=== PATIENT | male | born 1940 | race Caucasian/White ===

== ENCOUNTER 2022-09-11 10:19 | Observation (INO) ==
[2022-09-11] MEDS ORDERED: MAG HYDROX/AL HYDROX/SIMETH 30 ML ORAL.SUSP PO PRN (10:26)
[2022-09-11] MEDS ORDERED: ONDANSETRON 4 MG/2 ML VIAL IV PRN (10:26)
[2022-09-11] MEDS ORDERED: oxyCODONE/APAP 5/325MG TABLET PO PRN (10:26)
[2022-09-11] MEDS: DEXTROSE 5%-NS 1,000 ML IV SCH ×2 (11:42→21:10)
--- NOTE | 2022-09-11 11:59 | Urology History & Physical ---
HPI History of Present Illness Patient information: Note initiated : 09/11/22 at 11:56 am Service Date, if different from initiated Date: [] Patient: Bakari Lovell 82 y/o M admitted on 09/11/22 for Blood in urine. Chief Complaint: [Gross hematuria with clot retention] Chief complaint: Gross hematuria with clot retention History of present illness: Lamonte is an 82-year-old male with a history of urinary retention who was last seen in the office yesterday, September 10, 2022. Cystoscopy on March 07, 2022 revealed an extremely large, obstructing, median lobe of the prostate and intravesical protrusion circumferentially. The bladder neck to verumontanum distance was approximately 4 cm with severe coaptation of the lateral lobes. He underwent transurethral resection of the prostate on September 05, 2022. Pathology did not reveal any evidence of prostate cancer. Postoperatively we performed a voiding trial in the hospital which he failed. A 22 Malagasy catheter was replaced. Yesterday we performed a voiding trial. 300 mL of fluid were placed in the bladder via the catheter. The Johnson catheter was then removed. He was unable to urinate. A 22 Malagasy catheter was replaced. He presented today emergently with gross hematuria and clot retention. Review of Systems All systems: reviewed and no additional remarkable complaints except as stated Constitutional Constitutional: Present as per HPI Genitourinary Genitourinary: as per HPI, difficulty urinating and hematuria PFSH PFSH All Active Problems Clot retention of urine (Acute) Gross hematuria (Acute) Urinary retention (Chronic) Skin lesion of left lower extremity (Acute) Hypertension (Chronic) History of anticoagulant therapy (Chronic) Contact dermatitis (Chronic) Degeneration of cervical intervertebral disc (Chronic) Lung field abnormal (Chronic) Neck pain (Chronic) Mixed hyperlipidemia (Chronic) Subcutaneous mass of neck (Chronic) Viral hepatitis (Chronic) Macular dystrophy (Chronic) Bronchitis (Chronic) Johnson catheter in place (Chronic) BPH loc w urin obs/LUTS (Chronic) Asymptomatic bacteriuria (Chronic) E coli infection (Chronic) Prostatic enlargement (Chronic) Obesity (Chronic) Chronic obstructive lung disease (Chronic) Asthma (Chronic) Age-related macular degeneration (Chronic) Urinary tract infectious disease (Chronic) MCC (current) use of anticoagulants (Chronic) Atrial fibrillation (Chronic) Adenocarcinoma of prostate (Chronic) Chronic retention of urine (Chronic) Sensorineural hearing loss, bilateral (Chronic) Tinnitus (Chronic) Memory impairment (Chronic) Claw foot (Chronic) Metatarsalgia (Chronic) Allergic rhinitis (Chronic) Other atopic dermatitis and related conditions (Chronic) Foot pain (Chronic) Essential hypertension (Chronic) Confusion (Chronic) Medical History Acute UTI Adenocarcinoma of prostate Age-related macular degeneration Allergic rhinitis Ankle edema Asthma Asymptomatic bacteriuria Pus, frequent Atrial fibrillation Bronchitis Cellulitis Chronic obstructive lung disease Chronic retention of urine Claw foot Confusion Contact dermatitis Degeneration of cervical intervertebral disc E coli infection Resistant, 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 Essential hypertension Foot pain History of anticoagulant therapy Hypertension MCC (current) use of anticoagulants Lung field abnormal Lung mass Left lower lung mass, possible lobe collapse; CT PET not confirmatory Macular dystrophy Memory impairment Metatarsalgia Mixed hyperlipidemia Neck pain Obesity Other atopic dermatitis and related conditions Prostatic enlargement Sensorineural hearing loss, bilateral Subcutaneous mass of neck Tinnitus Urinary tract infectious disease Viral hepatitis Surgical History History of biopsy -Prostate/Needle or Punch -Lung Nodule History of mandibular surgery (~1956) Family History Father Cancer prostate Hypertension Brother Diabetes Hypertension Sister Diabetes Hypertension Grandmother Diabetes Paternal Hypertension Maternal Breast cancer Maternal Grandfather Colon cancer Paternal Cancer Prostate Social History marital status: service: Yes occupational status: employed occupation: Self smoking status: Former smoker alcohol intake frequency: does not drink substance use type: does not use MEDS/ALLERGIES Home Medications and Allergies Home Medications Medication Instructions Recorded Confirmed Type catheter #1 ea 06/23/17 09/10/22 History emollient (Aqua Lube topical 1 each topical TID 06/23/17 09/11/22 History lubricant) rivaroxaban 15 mg tablet (Xarelto) 15 mg PO QDAY 07/15/22 09/11/22 History chlorthalidone 25 mg tablet 25 mg PO QDAY 07/31/22 09/11/22 History metoprolol succinate 100 mg 100 mg PO QDAY 07/31/22 09/11/22 History tablet,extended release 24 hr albuterol 90 mcg/actuation aerosol 90 mcg inhalation Q6HP PRN 08/15/22 09/11/22 History inhaler Shortness Of Breath sulfamethoxazole 800 1 tab PO BID #14 tabs 09/07/22 09/11/22 Rx mg-trimethoprim 160 mg tablet (Bactrim DS) Allergies Allergy/AdvReac Type Severity Reaction Status Date / Time No Known Drug Allergies Allergy Verified 09/11/22 10:43 Physical Examination Vital Signs Vital signs: Temp Pulse Resp BP Pulse Ox O2 Del Method 97.3 F 111 H 22 124/72 100 Room Air 09/11/22 10:26 09/11/22 10:26 09/11/22 10:26 09/11/22 10:26 09/11/22 10:09/11/22 10:26 General physical appearance General physical exam: well developed, well nourished and no distress ENT ENT exam: decreased hearing Head Head exam IM: Present atraumatic, normal inspection and normocephalic Neck Neck exam: trachea midline Cardiovascular Cardiovascular exam IM: Present normal rate and rhythm Respiratory Respiratory exam: normal respiratory effort, clear to percussion and clear to auscultation Abdomen Abdomen: Present soft and non tender Genitourinary Genitourinary (Male): Present normal penis with no external lesions (Visual erosion of the distal 2 cm of the urethra) Neurologic Neurologic: Present normal coordination and normal sensation Psychiatric Psychiatric: Present oriented to time, oriented to person and oriented to place Results Labs 09/11/22 11:53 09/11/22 11:53 Labs: All other labs normal. A/P Assessment and plan (1) Clot retention of urine: Status: Acute (2) Gross hematuria: Status: Acute (3) Urinary retention: Status: Chronic Narrative A/P Narrative: Lamonte is an 82-year-old male with a history of urinary retention who was last seen in the office yesterday, September 10, 2022. Cystoscopy on March 07, 2022 revealed an extremely large, obstructing, median lobe of the prostate and intravesical protrusion circumferentially. The bladder neck to verumontanum distance was approximately 4 cm with severe coaptation of the lateral lobes. He underwent transurethral resection of the prostate on September 05, 2022. Pathology did not reveal any evidence of prostate cancer. Postoperatively we performed a voiding trial in the hospital which he failed. A 22 Malagasy catheter was replaced. He reports he has not restarted his Eliquis. Yesterday we performed a voiding trial. 300 mL of fluid were placed in the bladder via the catheter. The Johnson catheter was then removed. He was unable to urinate. A 22 Malagasy catheter was replaced. He presented today emergently with gross hematuria and clot retention. In the office today I exchanged the 22 Malagasy catheter for 24 Malagasy catheter with a 30 cc balloon. I performed hand irrigation with 2 L of sterile water and removed approxione 100 cc of clot. The urine remained clear red blood flowing freely. Due to the gross hematuria I decided to admit him to the hospital for observation and possible continuous bladder irrigation. If the urine does not clear I may take him to the operating room tomorrow for evacuation of clot and fulguration of bleeding Time Spent With Patient Time: Total time spent is greater than 50% in coordination of care (as documented) at patient's floor/unit and/or counseling patient:
[2022-09-11] MEDS ORDERED: LIDOCAINE 2% URO-JET 10 ML JEL.PF.APP UR ONE (12:15)
[2022-09-11 12:31] LABS: Hematocrit 32.2 % (40.1-51.0); Hemoglobin 10.6 g/dL (13.7-17.5); Mean Cell Volume 92.3 fL (80.0-100.0); Mean Corpuscular HGB Conc 32.9 g/dL (31.0-36.0); Mean Platelet Volume 9.1 fL (8.8-12.5); Platelet Count 212 K/mcL (140-440); RBC 3.49 M/mcL (4.63-6.08); Red Cell Distribution Width 14.5 % (11.5-14.5); WBC 13.5 K/mcL (4.5-11.0)
[2022-09-11 13:03] LABS: Blood Urea Nitrogen 20 mg/dL (8-23); Calcium 8.8 mg/dL (8.6-10.4); Carbon Dioxide 23 mmol/L (22-30); Chloride 97 mmol/L (96-108); Glomerular Filtration Rate 36; Glucose 152 mg/dL (70-105)
[2022-09-11] MEDS: 0.9 % SODIUM CHLORIDE 10 ML SYRINGE IV SCH ×2 (14:46→21:09)
[2022-09-12] MEDS: 0.9 % SODIUM CHLORIDE 10 ML SYRINGE IV SCH ×4 (05:45→20:15)
[2022-09-12] MEDS: DEXTROSE 5%-NS 1,000 ML IV SCH ×2 (06:32→18:58)
--- NOTE | 2022-09-12 08:49 | XRay Report ---
INDICATION: pre-op TECHNIQUE: AP portable semiupright chest x-ray COMPARISON: Previous chest x-rays dated 02/06/2022, 08/05/2017. Previous chest CT scan dated 03/29/2022 FINDINGS: Lungs:Mild bibasilar pulmonary parenchymal density. This is not well evaluated on this AP, semiupright chest x-ray. This patient has a history of left lower lobe consolidation demonstrated on prior chest CT scan. Upright PA and lateral chest x-ray or CT scan recommended for further evaluation. Mid and upper lungs are negative. Heart, vascular:No significant cardiomegaly. Pulmonary vascularity is normal. No pulmonary edema or pulmonary congestion Mediastinum, shabbir:No mediastinal widening. No hilar mass Pleura:No pleural fluid. No pleural-based mass or calcification Skeletal:Negative. IMPRESSION: 1. Mild bibasilar pulmonary parenchymal density. Recommend routine upright PA and lateral chest x-ray 2. No other abnormality Interpreted and Authenticated by: Eitan See 09/12/22
[2022-09-12] MEDS ORDERED: ceFAZolin 2 GM in DEXTROSE 5% IN WATER 50 ML IV SCH (09:15)
[2022-09-12] MEDS ORDERED: PROPOFOL 200 MG/20 ML VIAL IV ONE (09:28)
[2022-09-12] MEDS ORDERED: KETAMINE 50 MG/ML Syringe (ANEST) IV ONE (09:28)
[2022-09-12] MEDS ORDERED: DEXAMETHASONE 10 MG/ML VIAL ONE (09:28)
[2022-09-12] MEDS ORDERED: ESMOLOL 100 MG/10 ML VIAL IV ONE (09:28)
[2022-09-12] MEDS ORDERED: PHENYLephrine 1 MG/10 ML SYRINGE (ANEST) ONE (09:28)
[2022-09-12] MEDS ORDERED: MAGNESIUM SULFATE 2 GM/50 ML BAG IV ONE (09:28)
[2022-09-12] MEDS ORDERED: LIDOCAINE HCL/PF 100 MG/5 ML SYRINGE IV ONE (09:28)
[2022-09-12] MEDS ORDERED: ONDANSETRON 4 MG/2 ML VIAL ONE (09:28)
[2022-09-12] MEDS ORDERED: fentaNYL 100 MCG/2 ML VIAL IV ONE (09:28)
[2022-09-12] MEDS ORDERED: GLYCOPYRROLATE 0.2 MG/ML VIAL IV ONE (09:28)
[2022-09-12] MEDS ORDERED: ACETAMINOPHEN 1,000 MG/100 ML BAG IV ONE (09:32)
[2022-09-12] MEDS ORDERED: LACTATED RINGERS 250 ML IV PRN ×2 (09:32→11:37)
[2022-09-12] MEDS ORDERED: LABETALOL 5 MG/ML ML IV PRN ×2 (09:32→11:37)
[2022-09-12] MEDS ORDERED: NALOXONE HCL 0.4 MG/ML VIAL IV PRN ×2 (09:32→11:37)
[2022-09-12] MEDS ORDERED: MEPERIDINE 25 MG/ML VIAL IV PRN ×2 (09:32→11:37)
[2022-09-12] MEDS ORDERED: IPRATROPIUM/ALBUTEROL 3 ML AMPUL.NEB NEB PRN ×3 (09:32→12:00)
[2022-09-12] MEDS ORDERED: ONDANSETRON 4 MG/2 ML VIAL IV PRN ×3 (09:32→12:16)
[2022-09-12] MEDS ORDERED: METOPROLOL TARTRATE 5 MG/5 ML VIAL IV PRN ×2 (09:32→11:37)
[2022-09-12] MEDS ORDERED: METHOCARBAMOL 1,000 MG/10 ML VIAL IV PRN ×2 (09:32→11:37)
[2022-09-12] MEDS ORDERED: fentaNYL 100 MCG/2 ML VIAL IV PRN ×2 (09:32→11:37)
[2022-09-12] MEDS ORDERED: LACTATED RINGERS 1,000 ML IV SCH ×2 (09:45→11:45)
--- NOTE | 2022-09-12 10:05 | EKG ---
[facility] Test Date: 2022-09-12 Pat Name: Bakari Lovell Department: [facility] Room: 126 Gender: Male Second Worker: : 1940 Requested By: Jamison Guillaume Order Number: [id number] Reading MD: Payam Londono D.O. Measurements Intervals [place] Rate: 94 P: [place]: QRS: 35 QRSD: 93 T: 57 QT: 390 QTc: 488 Interpretive Statements Atrial fibrillation Probable LVH with secondary repol abnrm Anterior Q waves, possibly due to LVH Electronically Signed On 09-12-2022 10:05:09 PDT by Payam Londono D.O. /store/M0/[id number]
[2022-09-12] MEDS ORDERED: LIDOCAINE 2% URO-JET 10 ML JEL.PF.APP UR ONE (11:23)
[2022-09-12] MEDS ORDERED: SCOPOLAMINE 1 PATCH PATCH TOPICAL PRN (12:00)
[2022-09-12] MEDS ORDERED: BISACODYL 10 MG SUPP.RECT PR PRN (12:16)
[2022-09-12] MEDS ORDERED: MAGNESIUM HYDROXIDE 30 ML ORAL.SUSP PO PRN (12:16)
[2022-09-12] MEDS ORDERED: MAG HYDROX/AL HYDROX/SIMETH 30 ML ORAL.SUSP PO PRN (12:16)
[2022-09-12] MEDS ORDERED: HYDROcodone/APAP 5/325MG TABLET PO PRN (12:16)
--- NOTE | 2022-09-12 12:16 | Operative Note ---
Brief Operative Note Date of procedure: 09/12/22 Pre-op diagnosis: Gross hematuria and clot retention status post TURP Post-op diagnosis: same Procedure: Cystoscopy with evacuation of 700 cc of dense clot and fulguration of bleeding Grafts/Implants: Yes (24 Polish three-way catheter with irrigation port plugged and 30 cc in ball) Anesthesia: GLMA Findings: 700 cc of dense clot Complications: none Surgeon: Kai Martinez Estimated blood loss (cc): 10 Specimens Removed/Pathology: none sent Condition: stable Disposition: PACU Operative Note Operative Note: After obtaining informed consent from the patient, he was brought to the operating room was placed upon on the operating table. General anesthesia was provided. He was repositioned in a dorsolithotomy position was prepped and draped in usual sterile fashion. Attention was directed to urethral meatus where a 28 Polish continuous-flow resectoscope sheath was obturator was easily passed per urethra into the bladder. The obturator was removed and the bipolar resectoscope element was placed. Immediately seen was clot. Attempts were made to hand irrigate the clot from the bladder these were unsuccessful due to the density of the clot. To remove the clot I needed to perform transurethral resection of the clot to break it into smaller pieces which could then be irrigated out. This took approximately 1-1/2 hours. Once the clot was completely evacuated there was no significant bleeding seen. I used the button electrode to cauterize the prostatic fossa. At the end of the procedure there was no bleeding seen and no further clot within the bladder. The bladder was filled and the resectoscope was removed. Lidocaine jelly was placed near the urethra and the bladder. A 24 Polish three-way Johnson catheter was and easily passed per urethra into the bladder. The balloon was inflated with 30 mL of sterile water. Was placed to gravity drainage. It was hand irrigated and ran clear. The irrigation port was plugged. No irrigation was started. He was returned to the spine position. He was awake and returned to the recovery room in stable condition.
[2022-09-12] MEDS ORDERED: DEXTROSE 5%-NS 1,000 ML IV SCH (12:30)
--- NOTE | 2022-09-12 15:27 | Discharge Plan ---
Discharge Plan Patient/Caregiver Discharge Instructions Activity: increase activity as tolerated Diet: Regular Diet Activity Restrictions/Additional Instructions: Discharged home with Johnson catheter in place. The irrigation port is already plugged. Keep the main drainage port to gravity drainage. Provide a leg bag and night bag. Teach care and use. Prescriptions: New hydrocodone-acetaminophen 5-325 mg tablet 1 tab PO Q6H PRN (Reason: pain) Qty: 8 0RF sulfamethoxazole-trimethoprim [Bactrim DS] 800-160 mg tablet 1 tab PO BID Qty: 14 0RF Continued Aqua Lube lubricant 1 each TOPICAL TID albuterol 90 mcg/actuation aerosol 90 mcg inhalation Q6HP PRN (Reason: Shortness Of Breath) chlorthalidone 25 mg tablet 25 mg PO QDAY metoprolol succinate 100 mg tablet extended release 24 hr 100 mg PO QDAY Discontinued sulfamethoxazole-trimethoprim [Bactrim DS] 800-160 mg tablet 1 tab PO BID Qty: 14 0RF No Action Xarelto 15 mg tablet 15 mg PO QDAY Patient Comments: on hold for now Rx Instructions: must administer with evening meal Follow Up Plan Patient Disposition: Home, Self-Care Discharge Orders: Discharge Order (Routine); Ordered 09/12/22 Ordered By: Kai Martinez
--- NOTE | 2022-09-12 15:27 | Urology Progress Note ---
SUBJECTIVE Subjective Patient information: Note initiated : 09/12/22 at 3:24 pm Service Date, if different from initiated Date: [] Patient: Bakari Lovell 82 y/o M admitted on 09/11/22 for Blood in urine. Chief Complaint: [Gross hematuria with clot retention] Principal diagnosis: Gross hematuria with clot retention status post transurethral resection of Interval history: The patient is status post evacuation of a large amount of clot from the bladder. Hemostasis was obtained. The patient was readmitted to the floor. A three-way Johnson catheter was placed but there is no irrigation running in the urine is clear to clear light pink. There were no clots in the urine. Constitutional Vitals: Vital Signs Temp Pulse Resp BP Pulse Ox O2 Del Method O2 Flow Rate 97.1 F 126 H 12 138/68 97 Nasal Cannula 2 09/12/22 13:21 09/12/22 13:21 09/12/22 13:21 09/12/22 13:21 09/12/22 13:21 09/12/22 13:10 09/12/22 13:20 Period Temp Pulse Resp BP Sys/Jackson Pulse Ox O2 Del Method O2 Flow Rate Last 24 Hr 97.0 F-98.6 F 98-126 8-24 103-159/47-148 95-100 Nasal Cannula-Room Air 0-5 Intake and Output 09/12/22 09/12/22 09/12/22 03:59 11:59 19:59 Intake Total 72423 6987 1550 Output Total 62057 6600 250 Balance -3853 387 1300 Intake & Output: Intake & Output 09/12/22 09/12/22 09/12/22 03:59 11:59 19:59 Intake Total 86286 6987 1550 Output Total 07137 6600 250 Balance -3853 387 1300 Intake: IV 947 987 100 Dextrose 5%-Ns IV Solution 1, 947 937 000 ml @ 100 mls/hr IV .Q10H [facility] Rx#:[id number] Ancef 2 gm In Dextrose 5% in 50 Water 50 ml @ 100 mls/hr IV PREOP [facility] Rx#:[id number] IV - Manual Only 1450 CBI Fluid 59256 6000 Output: Urine Catheter Amount 150 Estimated Blood Loss 100 CBI Fluid 41621 6600 Other: Urine Appearance Hematuria Clear Small Blood Clots 3-way Urethral Clear Urine Color Medium Red Light [place] 3-way Urethral Light Red Light Red Urine Odor Normal Normal 3-way Urethral Normal Net CBI 400 250 General appearance: average body habitus, cooperative and no acute distress Head Head exam: Present atraumatic, normal inspection and normocephalic Respiratory Respiratory exam: Present normal respiratory exam and CTAB Cardiovascular Cardiovascular exam: Present normal rate and rhythm Expanded Exam Urine Appearance: Clear Urine Color: Light Red A/P Assessment and plan (1) Clot retention of urine: Status: Acute (2) Gross hematuria: Status: Acute (3) Urinary retention: Status: Chronic Narrative A/P Narrative: Lamonte is an 82-year-old male who is status postevacuation of clot and fulguration of bleeding today. I kept him for several hours after surgery and the urine remains a clear to clear light red color without irrigation. I feel that he may go home. We will leave the Johnson catheter in place. Will go home with a leg bag and night bag. He will follow-up with me in the office next week for another voiding trial. Time Spent With Patient Time: Total time spent is greater than 50% in coordination of care (as documented) at patient's floor/unit and/or counseling patient:
[2022-09-13 06:23] LABS: Basophils # (Auto) 0.01 K/mcL (0.00-0.30); Basophils % (Auto) 0.1 % (0.0-2.0); Eosinophils # (Auto) 0 K/mcL (0.00-0.70); Eosinophils % (Auto) 0 % (0.0-7.0); Hematocrit 22.9 % (40.1-51.0); Hemoglobin 7.5 g/dL (13.7-17.5); Lymphocytes # (Auto) 0.86 K/mcL (1.50-4.80); Lymphocytes % (Auto) 6.7 % (15.5-49.0); Mean Cell Volume 93.5 fL (80.0-100.0); Mean Corpuscular HGB Conc 32.8 g/dL (31.0-36.0); Mean Platelet Volume 9.3 fL (8.8-12.5); Monocytes # (Auto) 0.95 K/mcL (0.10-0.90); Monocytes % (Auto) 7.4 % (1.0-12.0); Neutrophils % (Auto) 84.7 % (38.0-78.0); Platelet Count 169 K/mcL (140-440); RBC 2.45 M/mcL (4.63-6.08); Red Cell Distribution Width 14.5 % (11.5-14.5); WBC 12.8 K/mcL (4.5-11.0)
--- NOTE | 2022-09-13 07:31 | Urology Progress Note ---
SUBJECTIVE Subjective Patient information: Note initiated : 09/13/22 at 7:28 am Service Date, if different from initiated Date: [] Patient: Bakari Lovell 82 y/o M admitted on 09/11/22 for Blood in urine. Chief Complaint: [] Principal diagnosis: Gross hematuria with clot retention status post transurethral resection of Interval history: Patient doing good this morning. No complaints. Denies any lightheadedness or dizziness, urine is clear Constitutional Vitals: Vital Signs Temp Pulse Resp BP Pulse Ox O2 Del Method O2 Flow Rate 98.1 F 88 16 117/68 99 Room Air 2 09/13/22 04:15 09/13/22 04:15 09/13/22 04:15 09/13/22 04:15 09/13/22 04:15 09/13/22 04:15 09/12/22 13:20 Period Temp Pulse Resp BP Sys/Jackson Pulse Ox O2 Del Method O2 Flow Rate Last 24 Hr 97.0 F-98.2 F 59-126 8-24 103-159/47-148 82-100 Nasal Cannula- Room Air 0-5 Intake and Output 09/12/22 09/13/22 09/13/22 19:59 03:59 11:59 Intake Total 3150 360 240 Output Total 350 1700 Balance 2800 360 -1460 Weight 83.143 kg Intake & Output: Intake & Output 09/12/22 09/13/22 09/13/22 19:59 03:59 11:59 Intake Total 3150 360 240 Output Total 350 1700 Balance 2800 360 -1460 Weight 83.143 kg Intake: IV 1100 Dextrose 5%-Ns IV Solution 1, 1000 000 ml @ 100 mls/hr IV .Q10H [facility] Rx#:[id number] Oral 600 360 240 IV - Manual Only 1450 Output: Urine Catheter Amount 250 1700 Estimated Blood Loss 100 Other: Meal Lunch Percent of Meal Consumed 100% Feeding Ability Independent Urine Appearance Cloudy Cloudy 3-way Urethral Cloudy Urine Color Dark Mary Jane Dark Mary Jane 3-way Urethral Dark Mary Jane Urine Odor Normal General appearance: cooperative and no acute distress GI/Abdominal GI/Abdominal exam: Present soft; Absent distended or tenderness Additional comments: Urine is clear via Johnson catheter Additional findings Additional findings: Labs noted A/P Assessment and plan (1) Johnson catheter in place: Status: Chronic (2) Gross hematuria: Assessment and plan: Resolved Status: Acute (3) Urinary retention: Status: Chronic (4) Clot retention of urine: Status: Acute Plan Postop day 1 status post cystoscopy, evacuation of bladder clot and fulguration. Patient doing well this morning without complaints. Patient's hemoglobin has dropped a little, he is asymptomatic.. We will plan to discharge him, with follow-up with Dr. Martinez next week, CBC next week before follow-up. Time Spent With Patient Time: Total time spent is greater than 50% in coordination of care (as documented) at patient's floor/unit and/or counseling patient:
== END 2022-09-13 11:30 | disposition home or self-care (01) ==
LOC: MEDSUR
PROVIDERS: ADMIT Urology; ATTEND Urology

== ENCOUNTER 2023-04-22 10:46 | Observation (INO) ==
[2023-04-22] MEDS ORDERED: IOPAMIDOL 100 ML BOTTLE IV ONE (10:47)
[2023-04-22 11:18] LABS: POC Calcium, Ionized 1.18 (1.16-1.32); POC Creatinine 1.4 (0.6-1.2); POC Potassium 4.5 (3.3-5.1)
[2023-04-22 11:36] LABS: POC INR 1.7 (0.8-1.2); POC Pro Time 19.4 (11.9-14.5)
[2023-04-22 12:12] LABS: Basophils # (Auto) 0.04 K/mcL (0.00-0.30); Basophils % (Auto) 0.5 % (0.0-2.0); Eosinophils % (Auto) 1.1 % (0.0-7.0); Hematocrit 44.9 % (40.1-51.0); Hemoglobin 14.1 g/dL (13.7-17.5); Lymphocytes # (Auto) 1.38 K/mcL (1.50-4.80); Lymphocytes % (Auto) 15.8 % (15.5-49.0); Mean Cell Volume 85.7 fL (80.0-100.0); Mean Corpuscular HGB Conc 31.4 g/dL (31.0-36.0); Mean Platelet Volume 9.1 fL (8.8-12.5); Monocytes # (Auto) 0.78 K/mcL (0.10-0.90); Neutrophils % (Auto) 73.3 % (38.0-78.0); Platelet Count 163 K/mcL (140-440); RBC 5.24 M/mcL (4.63-6.08); Red Cell Distribution Width 15.9 % (11.5-14.5); WBC 8.7 K/mcL (4.5-11.0)
[2023-04-22 12:31] LABS: Albumin 4.1 gm/dL (3.2-5.2); Bilirubin,Direct 0.2 mg/dL (<0.3); Globulin 3.2 gm/dL (2.2-3.7)
[2023-04-22 14:17] LABS: Free T4 (Free Thyroxine) 1.25 ng/dL (0.93-1.70); Thyroid Stimulating Hormone 1.02 uIU/mL (0.27-5.01)
[2023-04-22 14:34] LABS: Appearance,Urine CLEAR (Clear); Bilirubin,Urine Negative (Negative); Color,Urine YELLOW; Culture Indicated,Urine Yes; Glucose,Urine (UA) Negative (Negative); Ketones,Urine 5 mg/dL (Negative); Leukocyte Esterase,Urine 25 /uL (Negative); Mucus,Urine FEW /hpf; Nitrate,Urine Negative (Negative); Protein,Urine 30 mg/dL (Negative); Specific Gravity,Urine 1.048 (1.000-1.035); Urine Blood >=1.0 mg/dL (Negative); Urine RBC > 182 /hpf (0-1); Urine Squamous Epithelial Cell < 1 /hpf (0-4); Urine WBC 17 /hpf (0-4); Urobilinogen,Urine Negative
[2023-04-22] MEDS ORDERED: cefTRIAXone 1 GM VIAL IV ONE (14:42)
[2023-04-22] MEDS ORDERED: ONDANSETRON 4 MG/2 ML VIAL IV PRN (19:28)
[2023-04-22] MEDS ORDERED: 0.9 % SODIUM CHLORIDE 500 ML IV ONE (19:28)
[2023-04-22] MEDS ORDERED: FOSFOMYCIN TROMETHAMINE 3 GM PACKET PO ONE (19:28)
[2023-04-22] MEDS ORDERED: IPRATROPIUM/ALBUTEROL 3 ML AMPUL.NEB NEB SCH (19:28)
[2023-04-22] MEDS ORDERED: ALBUTEROL SULFATE 2.5 MG/3 ML NEBULIZER NEB PRN (19:28)
[2023-04-22] MEDS ORDERED: ACETAMINOPHEN 325 MG TABLET PO PRN (19:28)
[2023-04-22] MEDS: DOCUSATE SODIUM 100 MG CAPSULE PO SCH (21:00)
[2023-04-22] MEDS ORDERED: SENNOSIDES 1 TABLET PO SCH (21:00)
[2023-04-22] MEDS: 0.9 % SODIUM CHLORIDE 10 ML SYRINGE IV SCH (21:00)
[2023-04-23] MEDS: 0.9 % SODIUM CHLORIDE 10 ML SYRINGE IV SCH ×2 (06:10→13:29)
[2023-04-23] MEDS: DOCUSATE SODIUM 100 MG CAPSULE PO SCH (08:10)
[2023-04-23] MEDS ORDERED: RIVAROXABAN 15 MG TABLET PO SCH ×2 (09:00→17:30)
[2023-04-23] MEDS ORDERED: LOSARTAN 25 MG TABLET PO SCH (09:00)
[2023-04-23] MEDS ORDERED: TIOTROPIUM BROMIDE 18 MCG INHALANT INH SCH (09:00)
[2023-04-23] MEDS ORDERED: ATORVASTATIN 20 MG TABLET PO SCH (09:00)
[2023-04-23] MEDS ORDERED: METOPROLOL SUCCINATE 50 MG TAB.XL.24H PO SCH (09:00)
[2023-04-23] MEDS ORDERED: FUROSEMIDE 20 MG TABLET PO SCH (09:00)
== END 2023-04-23 14:08 | disposition home or self-care (01) ==
LOC: MEDSUR 10:46 → ED 10:46 → MEDSUR 19:20
PROVIDERS: ADMIT Internal Medicine; ATTEND Internal Medicine

== ENCOUNTER 2024-03-31 11:19 | Inpatient (IN) ==
[2024-03-31 12:08] LABS: Basophils # (Auto) 0.05 K/mcL (0.00-0.30); Basophils % (Auto) 0.7 % (0.0-2.0); Eosinophils # (Auto) 0.49 K/mcL (0.00-0.70); Eosinophils % (Auto) 6.6 % (0.0-7.0); Hematocrit 41.2 % (40.1-51.0); Hemoglobin 12.4 g/dL (13.7-17.5); Lymphocytes # (Auto) 1.07 K/mcL (1.50-4.80); Lymphocytes % (Auto) 14.5 % (15.5-49.0); Mean Cell Volume 85.1 fL (80.0-100.0); Mean Corpuscular HGB Conc 30.1 g/dL (31.0-36.0); Mean Platelet Volume 9.1 fL (8.8-12.5); Monocytes # (Auto) 1.06 K/mcL (0.10-0.90); Monocytes % (Auto) 14.3 % (1.0-12.0); Neutrophils % (Auto) 63.6 % (38.0-78.0); Platelet Count 202 K/mcL (140-440); RBC 4.84 M/mcL (4.63-6.08); Red Cell Distribution Width 16.2 % (11.5-14.5); WBC 7.4 K/mcL (4.5-11.0)
[2024-03-31 12:16] LABS: INR 1.2 (0.9-1.1); Prothrombin Time 15.2 sec (11.9-14.5)
[2024-03-31 12:19] LABS: Blood Urea Nitrogen 17 mg/dL (8-23); Calcium 8.6 mg/dL (8.6-10.4); Carbon Dioxide 24 mmol/L (22-30); Chloride 105 mmol/L (96-108); Glomerular Filtration Rate 49; Glucose 104 mg/dL (70-105); Potassium 3.6 mmol/L (3.3-5.1); Sodium 144 mmol/L (133-145)
[2024-03-31] MEDS ORDERED: fentaNYL 100 MCG/2 ML VIAL IV PRN (14:02)
[2024-03-31] MEDS ORDERED: ONDANSETRON 4 MG/2 ML VIAL IV PRN (14:02)
[2024-03-31] MEDS: POLYETHYLENE GLYCOL 3350 17 GM PACKET PO SCH (15:04)
[2024-03-31] MEDS: DEXTROSE 5%-1/2NS 1,000 ML IV SCH (15:24)
[2024-04-01] MEDS: PEG 3350/NA SULF,BICARB,CL/KCL 4,000 ML ORAL.SOL PO ONE (16:19)
[2024-04-02] MEDS ORDERED: SCOPOLAMINE 1 PATCH PATCH TOPICAL PRN (08:30)
[2024-04-02] MEDS ORDERED: IPRATROPIUM/ALBUTEROL 3 ML AMPUL.NEB NEB PRN (08:30)
[2024-04-02] MEDS ORDERED: PROPOFOL 200 MG/20 ML VIAL IV ONE (09:37)
[2024-04-02] MEDS: LOSARTAN 25 MG TABLET PO SCH (12:34)
[2024-04-02] MEDS: METOPROLOL SUCCINATE 50 MG TAB.XL.24H PO SCH (12:34)
[2024-04-03 06:25] LABS: Basophils # (Auto) 0.03 K/mcL (0.00-0.30); Basophils % (Auto) 0.4 % (0.0-2.0); Eosinophils # (Auto) 0.25 K/mcL (0.00-0.70); Eosinophils % (Auto) 3.6 % (0.0-7.0); Hematocrit 33.8 % (40.1-51.0); Hemoglobin 10.4 g/dL (13.7-17.5); Lymphocytes # (Auto) 0.93 K/mcL (1.50-4.80); Lymphocytes % (Auto) 13.4 % (15.5-49.0); Mean Cell Volume 85.4 fL (80.0-100.0); Mean Corpuscular HGB Conc 30.8 g/dL (31.0-36.0); Mean Platelet Volume 8.8 fL (8.8-12.5); Monocytes # (Auto) 1.06 K/mcL (0.10-0.90); Monocytes % (Auto) 15.2 % (1.0-12.0); Neutrophils % (Auto) 67.1 % (38.0-78.0); Platelet Count 159 K/mcL (140-440); RBC 3.96 M/mcL (4.63-6.08); Red Cell Distribution Width 16.1 % (11.5-14.5)
== END 2024-04-04 13:30 | disposition home or self-care (01) | DRG 394 ==
LOC: ED 11:19 → MEDSUR 14:33
PROVIDERS: ADMIT Family Medicine Adult Medicine; ATTEND Family Medicine Adult Medicine

== ENCOUNTER 2024-04-11 13:59 | Inpatient (IN) ==
[2024-04-11] MEDS ORDERED: IOPAMIDOL 100 ML BOTTLE IV ONE (14:00)
[2024-04-11] MEDS: 0.9 % SODIUM CHLORIDE 250 ML IV SCH ×3 (14:30→18:54)
[2024-04-11] MEDS: 0.9 % SODIUM CHLORIDE 1,000 ML IV ONE (14:31)
[2024-04-11 14:57] LABS: Basophils # (Auto) 0.03 K/mcL (0.00-0.30); Basophils % (Auto) 0.2 % (0.0-2.0); Eosinophils # (Auto) 0.21 K/mcL (0.00-0.70); Eosinophils % (Auto) 1.7 % (0.0-7.0); Hematocrit 29.4 % (40.1-51.0); Hemoglobin 8.6 g/dL (13.7-17.5); Lymphocytes # (Auto) 2.32 K/mcL (1.50-4.80); Lymphocytes % (Auto) 19.2 % (15.5-49.0); Mean Cell Volume 89.6 fL (80.0-100.0); Mean Corpuscular HGB Conc 29.3 g/dL (31.0-36.0); Mean Platelet Volume 9.9 fL (8.8-12.5); Monocytes # (Auto) 1.31 K/mcL (0.10-0.90); Monocytes % (Auto) 10.8 % (1.0-12.0); Neutrophils % (Auto) 67.6 % (38.0-78.0); Platelet Count 211 K/mcL (140-440); RBC 3.28 M/mcL (4.63-6.08); Red Cell Distribution Width 16.4 % (11.5-14.5); WBC 12.1 K/mcL (4.5-11.0)
[2024-04-11 15:08] LABS: Prothrombin Time 23.3 sec (11.9-14.5)
[2024-04-11 15:16] LABS: ALT/SGPT 7 U/L (<40); AST/SGOT 14 U/L (<40); Albumin 3.4 gm/dL (3.2-5.2); Albumin/Globulin Ratio 1.3 (1.0-2.3); Alkaline Phosphatase 52 U/L (39-117); Bilirubin,Total 0.6 mg/dL (0.1-1.0); Blood Urea Nitrogen 26 mg/dL (8-23); Calcium 8.2 mg/dL (8.6-10.4); Carbon Dioxide 19 mmol/L (22-30); Chloride 105 mmol/L (96-108); Globulin 2.6 gm/dL (2.2-3.7); Glomerular Filtration Rate 42; Glucose 171 mg/dL (70-105); Potassium 3.8 mmol/L (3.3-5.1); Sodium 142 mmol/L (133-145)
[2024-04-11 22:47] LABS: Appearance,Urine Clear (Clear); Bacteria,Urine Few /hpf (0); Bilirubin,Urine Negative (Negative); Color,Urine Yellow; Glucose,Urine (UA) Negative (Negative); Ketones,Urine Negative (Negative); Leukocyte Esterase,Urine Trace /uL (Negative); Nitrate,Urine Positive (Negative); Protein,Urine 30 mg/dL (Negative); Specific Gravity,Urine 1.015 (1.000-1.035); Urine Blood Trace-lysed ery/mcL (Negative); Urine RBC 4 /hpf (0-3); Urine Squamous Epithelial Cell 0 /hpf (0-4); Urine WBC 34 /hpf (0-4)
[2024-04-12 07:01] LABS: Basophils # (Auto) 0.04 K/mcL (0.00-0.30); Basophils % (Auto) 0.6 % (0.0-2.0); Eosinophils # (Auto) 0.28 K/mcL (0.00-0.70); Eosinophils % (Auto) 4.1 % (0.0-7.0); Hemoglobin 12.4 g/dL (13.7-17.5); Lymphocytes # (Auto) 1.12 K/mcL (1.50-4.80); Lymphocytes % (Auto) 16.3 % (15.5-49.0); Mean Cell Volume 85.2 fL (80.0-100.0); Mean Corpuscular HGB Conc 32.6 g/dL (31.0-36.0); Mean Platelet Volume 9.3 fL (8.8-12.5); Monocytes # (Auto) 0.95 K/mcL (0.10-0.90); Monocytes % (Auto) 13.8 % (1.0-12.0); Neutrophils % (Auto) 64.8 % (38.0-78.0); Platelet Count 127 K/mcL (140-440); RBC 4.46 M/mcL (4.63-6.08); Red Cell Distribution Width 14.9 % (11.5-14.5); WBC 6.9 K/mcL (4.5-11.0)
[2024-04-13 06:53] LABS: Basophils # (Auto) 0.04 K/mcL (0.00-0.30); Basophils % (Auto) 0.6 % (0.0-2.0); Eosinophils # (Auto) 0.29 K/mcL (0.00-0.70); Eosinophils % (Auto) 4.1 % (0.0-7.0); Hemoglobin 11.9 g/dL (13.7-17.5); Lymphocytes # (Auto) 1.13 K/mcL (1.50-4.80); Lymphocytes % (Auto) 15.9 % (15.5-49.0); Mean Cell Volume 86.2 fL (80.0-100.0); Mean Corpuscular HGB Conc 32.2 g/dL (31.0-36.0); Mean Platelet Volume 9.2 fL (8.8-12.5); Monocytes # (Auto) 1.06 K/mcL (0.10-0.90); Monocytes % (Auto) 14.9 % (1.0-12.0); Neutrophils % (Auto) 64.1 % (38.0-78.0); Platelet Count 136 K/mcL (140-440); RBC 4.29 M/mcL (4.63-6.08); Red Cell Distribution Width 15.5 % (11.5-14.5); WBC 7.1 K/mcL (4.5-11.0)
== END 2024-04-13 16:25 | disposition home or self-care (01) | DRG 378 ==
LOC: ED 13:59 → MEDSUR 19:17
PROVIDERS: ADMIT Family Medicine Adult Medicine; ATTEND Family Medicine Adult Medicine

== ENCOUNTER 2024-05-27 16:41 | Inpatient (IN) ==
[2024-05-27 17:35] LABS: Basophils # (Auto) 0.01 K/mcL (0.00-0.30); Basophils % (Auto) 0 % (0.0-2.0); Eosinophils # (Auto) 0 K/mcL (0.00-0.70); Eosinophils % (Auto) 0 % (0.0-7.0); Hematocrit 49.3 % (40.1-51.0); Hemoglobin 15.5 g/dL (13.7-17.5); Lymphocytes # (Auto) 0.86 K/mcL (1.50-4.80); Mean Cell Volume 87.3 fL (80.0-100.0); Mean Corpuscular HGB Conc 31.4 g/dL (31.0-36.0); Mean Platelet Volume 9.6 fL (8.8-12.5); Monocytes # (Auto) 1.65 K/mcL (0.10-0.90); Monocytes % (Auto) 7.6 % (1.0-12.0); Neutrophils % (Auto) 87.8 % (38.0-78.0); Platelet Count 237 K/mcL (140-440); RBC 5.65 M/mcL (4.63-6.08); Red Cell Distribution Width 15.9 % (11.5-14.5); WBC 21.6 K/mcL (4.5-11.0)
[2024-05-27] MEDS: ONDANSETRON 4 MG/2 ML VIAL IV ONE (17:40)
[2024-05-27] MEDS: 0.9 % SODIUM CHLORIDE 1,000 ML IV ONE (17:40)
[2024-05-27 17:53] LABS: ALT/SGPT 8 U/L (<40); AST/SGOT 18 U/L (<40); Albumin 4.1 gm/dL (3.2-5.2); Albumin/Globulin Ratio 1.1 (1.0-2.3); Alkaline Phosphatase 69 U/L (39-117); Bilirubin,Total 1.3 mg/dL (0.1-1.0); Blood Urea Nitrogen 35 mg/dL (8-23); Calcium 9.6 mg/dL (8.6-10.4); Carbon Dioxide 14 mmol/L (22-30); Chloride 101 mmol/L (96-108); Globulin 3.7 gm/dL (2.2-3.7); Glomerular Filtration Rate 25; Glucose 206 mg/dL (70-105); Potassium 4.1 mmol/L (3.3-5.1); Sodium 139 mmol/L (133-145)
[2024-05-27] MEDS ORDERED: VANCOMYCIN 1,000 MG in 0.9 % SODIUM CHLORIDE 250 ML IV ONE (17:54)
[2024-05-27] MEDS: METOPROLOL TARTRATE 5 MG/5 ML VIAL IV SCH (17:55)
[2024-05-27] MEDS: CEFEPIME 2 GM VIAL IV SCH (18:28)
[2024-05-27] MEDS: VANCOMYCIN 1,250 MG in 0.9 % SODIUM CHLORIDE 500 ML IV ONE (18:54)
[2024-05-27] MEDS: SODIUM CHLORIDE IV ONE (18:55)
[2024-05-27 19:15] LABS: Appearance,Urine Turbid (Clear); Bacteria,Urine Many /hpf (0); Bilirubin,Urine Negative (Negative); Color,Urine Yellow; Glucose,Urine (UA) Negative (Negative); Ketones,Urine Negative (Negative); Leukocyte Esterase,Urine Large /uL (Negative); Nitrate,Urine Positive (Negative); PH,Urine >= 9.0 (5.0-9.0); Protein,Urine >=300 mg/dL (Negative); Specific Gravity,Urine 1.015 (1.000-1.035); Triple Phosphate Crystal,Urine Many /hpf; Urine Blood Large ery/mcL (Negative); Urine RBC > 182 /hpf (0-1); Urine Squamous Epithelial Cell 0 /hpf (0-4); Urine WBC > 182 /hpf (0-4); Urobilinogen,Urine Normal
[2024-05-27] MEDS: VANCOMYCIN PER PHARMACY IV ONE (19:21)
[2024-05-27] MEDS ORDERED: SENNOSIDES 1 TABLET PO PRN (21:38)
[2024-05-27] MEDS ORDERED: ACETAMINOPHEN 325 MG TABLET PO PRN (21:38)
[2024-05-27] MEDS ORDERED: LACTULOSE 20 GM/30 ML ORAL.SOL PO PRN (21:38)
[2024-05-27] MEDS ORDERED: ONDANSETRON 4 MG/2 ML VIAL IV PRN (21:38)
[2024-05-27] MEDS ORDERED: VANCOMYCIN PER PHARMACY IV SCH (21:38)
[2024-05-27] MEDS ORDERED: ALBUTEROL SULFATE 2.5 MG/3 ML NEBULIZER NEB PRN (21:38)
[2024-05-27] MEDS: 0.9 % SODIUM CHLORIDE 1,000 ML IV SCH (22:40)
[2024-05-27] MEDS: 0.9 % SODIUM CHLORIDE 10 ML SYRINGE IV SCH (22:42)
[2024-05-27] MEDS: IPRATROPIUM/ALBUTEROL 3 ML AMPUL.NEB NEB SCH (23:59)
[2024-05-28 06:06] LABS: Basophils # (Auto) 0.02 K/mcL (0.00-0.30); Basophils % (Auto) 0.1 % (0.0-2.0); Eosinophils # (Auto) 0.01 K/mcL (0.00-0.70); Eosinophils % (Auto) 0.1 % (0.0-7.0); Hematocrit 37.9 % (40.1-51.0); Hemoglobin 12.1 g/dL (13.7-17.5); Lymphocytes # (Auto) 0.97 K/mcL (1.50-4.80); Lymphocytes % (Auto) 5.8 % (15.5-49.0); Mean Cell Volume 87.3 fL (80.0-100.0); Mean Corpuscular HGB Conc 31.9 g/dL (31.0-36.0); Mean Platelet Volume 9.7 fL (8.8-12.5); Monocytes # (Auto) 1.62 K/mcL (0.10-0.90); Monocytes % (Auto) 9.7 % (1.0-12.0); Platelet Count 168 K/mcL (140-440); RBC 4.34 M/mcL (4.63-6.08); WBC 16.7 K/mcL (4.5-11.0)
[2024-05-28 06:37] LABS: ALT/SGPT 6 U/L (<40); AST/SGOT 14 U/L (<40); Albumin 3.1 gm/dL (3.2-5.2); Albumin/Globulin Ratio 1.2 (1.0-2.3); Alkaline Phosphatase 50 U/L (39-117); Bilirubin,Direct 0.5 mg/dL (<0.3); Bilirubin,Total 0.9 mg/dL (0.1-1.0); Blood Urea Nitrogen 27 mg/dL (8-23); Calcium 8.4 mg/dL (8.6-10.4); Carbon Dioxide 19 mmol/L (22-30); Chloride 108 mmol/L (96-108); Globulin 2.6 gm/dL (2.2-3.7); Glomerular Filtration Rate 45; Glucose 103 mg/dL (70-105); Lactate Dehydrogenase 134 U/L (135-225); Phosphorous 1.9 mg/dL (2.5-4.5); Potassium 3.9 mmol/L (3.3-5.1); Sodium 138 mmol/L (133-145); Triglycerides 59 mg/dL (<150); Uric Acid 5.8 mg/dL (2.5-8.0)
[2024-05-28 08:50] LABS: Estimated Average Glucose(eAG) 114 mg/dL; Hemoglobin A1C 5.6 % Hgb (4.0-6.0)
[2024-05-28] MEDS: CEFEPIME 1 GM VIAL IV SCH ×2 (08:50→20:33)
[2024-05-28] MEDS: DOCUSATE SODIUM 100 MG CAPSULE PO SCH (08:51)
[2024-05-28] MEDS: METOPROLOL SUCCINATE 50 MG TAB.XL.24H PO SCH ×2 (08:51→09:55)
[2024-05-28] MEDS: HEPARIN 5,000 UNIT/ML VIAL SQ SCH (08:51)
[2024-05-28] MEDS: CEFEPIME 1 GM VIAL IV ONE (10:04)
[2024-05-28] MEDS: TIOTROPIUM BROMIDE 18 MCG INHALANT INH SCH (10:23)
[2024-05-28] MEDS: ATORVASTATIN 20 MG TABLET PO SCH (10:25)
[2024-05-28] MEDS: VANCOMYCIN 1,250 MG in 0.9 % SODIUM CHLORIDE 500 ML IV SCH (14:12)
[2024-05-28] MEDS ORDERED: IPRATROPIUM/ALBUTEROL 3 ML AMPUL.NEB NEB PRN (18:03)
[2024-05-29 07:15] LABS: Basophils # (Auto) 0.04 K/mcL (0.00-0.30); Basophils % (Auto) 0.5 % (0.0-2.0); Eosinophils # (Auto) 0.14 K/mcL (0.00-0.70); Eosinophils % (Auto) 1.9 % (0.0-7.0); Hematocrit 36.4 % (40.1-51.0); Hemoglobin 11.6 g/dL (13.7-17.5); Lymphocytes # (Auto) 0.85 K/mcL (1.50-4.80); Lymphocytes % (Auto) 11.6 % (15.5-49.0); Mean Cell Volume 87.9 fL (80.0-100.0); Mean Corpuscular HGB Conc 31.9 g/dL (31.0-36.0); Monocytes # (Auto) 0.79 K/mcL (0.10-0.90); Monocytes % (Auto) 10.7 % (1.0-12.0); Neutrophils % (Auto) 74.9 % (38.0-78.0); Platelet Count 149 K/mcL (140-440); RBC 4.14 M/mcL (4.63-6.08); Red Cell Distribution Width 16.5 % (11.5-14.5); WBC 7.4 K/mcL (4.5-11.0)
[2024-05-29 07:36] LABS: ALT/SGPT 6 U/L (<40); AST/SGOT 17 U/L (<40); Albumin 3.2 gm/dL (3.2-5.2); Albumin/Globulin Ratio 1.3 (1.0-2.3); Alkaline Phosphatase 47 U/L (39-117); Bilirubin,Direct 0.3 mg/dL (<0.3); Bilirubin,Total 0.5 mg/dL (0.1-1.0); Blood Urea Nitrogen 22 mg/dL (8-23); Calcium 8.6 mg/dL (8.6-10.4); Carbon Dioxide 21 mmol/L (22-30); Chloride 110 mmol/L (96-108); Globulin 2.5 gm/dL (2.2-3.7); Glomerular Filtration Rate 54; Glucose 102 mg/dL (70-105); Lactate Dehydrogenase 124 U/L (135-225); Phosphorous 2.2 mg/dL (2.5-4.5); Potassium 4.2 mmol/L (3.3-5.1); Sodium 140 mmol/L (133-145); Triglycerides 64 mg/dL (<150); Uric Acid 5.3 mg/dL (2.5-8.0)
[2024-05-29] MEDS: METOPROLOL SUCCINATE 50 MG TAB.XL.24H PO SCH (09:35)
[2024-05-29] MEDS: VANCOMYCIN 1,500 MG in 0.9 % SODIUM CHLORIDE 500 ML IV SCH (15:08)
[2024-05-29] MEDS: 0.9 % SODIUM CHLORIDE 500 ML IV ONE (20:25)
[2024-05-29] MEDS: POLYETHYLENE GLYCOL 3350 17 GM PACKET PO SCH (20:25)
[2024-05-30 05:58] LABS: Basophils # (Auto) 0.04 K/mcL (0.00-0.30); Basophils % (Auto) 0.7 % (0.0-2.0); Eosinophils # (Auto) 0.15 K/mcL (0.00-0.70); Eosinophils % (Auto) 2.6 % (0.0-7.0); Hematocrit 37.7 % (40.1-51.0); Hemoglobin 11.7 g/dL (13.7-17.5); Lymphocytes # (Auto) 0.91 K/mcL (1.50-4.80); Lymphocytes % (Auto) 15.6 % (15.5-49.0); Mean Cell Volume 89.8 fL (80.0-100.0); Mean Platelet Volume 9.2 fL (8.8-12.5); Monocytes # (Auto) 0.69 K/mcL (0.10-0.90); Monocytes % (Auto) 11.8 % (1.0-12.0); Neutrophils % (Auto) 68.6 % (38.0-78.0); Platelet Count 138 K/mcL (140-440); Red Cell Distribution Width 16.3 % (11.5-14.5); WBC 5.8 K/mcL (4.5-11.0)
[2024-05-30 06:48] LABS: ALT/SGPT 10 U/L (<40); AST/SGOT 19 U/L (<40); Albumin 3.1 gm/dL (3.2-5.2); Albumin/Globulin Ratio 1.3 (1.0-2.3); Alkaline Phosphatase 44 U/L (39-117); Bilirubin,Direct 0.3 mg/dL (<0.3); Bilirubin,Total 0.4 mg/dL (0.1-1.0); Blood Urea Nitrogen 22 mg/dL (8-23); Calcium 8.1 mg/dL (8.6-10.4); Carbon Dioxide 21 mmol/L (22-30); Chloride 110 mmol/L (96-108); Globulin 2.4 gm/dL (2.2-3.7); Glomerular Filtration Rate 54; Glucose 103 mg/dL (70-105); Lactate Dehydrogenase 123 U/L (135-225); Phosphorous 2.1 mg/dL (2.5-4.5); Potassium 4.3 mmol/L (3.3-5.1); Sodium 138 mmol/L (133-145); Triglycerides 68 mg/dL (<150); Uric Acid 4.7 mg/dL (2.5-8.0)
[2024-05-31 06:44] LABS: Basophils # (Auto) 0.04 K/mcL (0.00-0.30); Basophils % (Auto) 0.7 % (0.0-2.0); Eosinophils # (Auto) 0.26 K/mcL (0.00-0.70); Eosinophils % (Auto) 4.7 % (0.0-7.0); Hematocrit 38.7 % (40.1-51.0); Hemoglobin 12.2 g/dL (13.7-17.5); Lymphocytes # (Auto) 0.82 K/mcL (1.50-4.80); Lymphocytes % (Auto) 14.8 % (15.5-49.0); Mean Corpuscular HGB Conc 31.5 g/dL (31.0-36.0); Mean Platelet Volume 9.4 fL (8.8-12.5); Monocytes # (Auto) 0.57 K/mcL (0.10-0.90); Monocytes % (Auto) 10.3 % (1.0-12.0); Neutrophils % (Auto) 68.6 % (38.0-78.0); Platelet Count 167 K/mcL (140-440); RBC 4.35 M/mcL (4.63-6.08); Red Cell Distribution Width 15.6 % (11.5-14.5); WBC 5.5 K/mcL (4.5-11.0)
[2024-05-31 07:11] LABS: ALT/SGPT 14 U/L (<40); AST/SGOT 23 U/L (<40); Albumin 3.2 gm/dL (3.2-5.2); Albumin/Globulin Ratio 1.2 (1.0-2.3); Alkaline Phosphatase 55 U/L (39-117); Bilirubin,Direct < 0.2 mg/dL (0-0.3); Bilirubin,Total 0.3 mg/dL (0.1-1.0); Blood Urea Nitrogen 20 mg/dL (8-23); Calcium 8.6 mg/dL (8.6-10.4); Carbon Dioxide 20 mmol/L (22-30); Chloride 107 mmol/L (96-108); Globulin 2.6 gm/dL (2.2-3.7); Glomerular Filtration Rate 60; Glucose 110 mg/dL (70-105); Lactate Dehydrogenase 139 U/L (135-225); Phosphorous 2.1 mg/dL (2.5-4.5); Potassium 4.3 mmol/L (3.3-5.1); Sodium 137 mmol/L (133-145); Triglycerides 183 mg/dL (<150); Uric Acid 4.1 mg/dL (2.5-8.0)
[2024-05-31] MEDS: PIPERACILLIN SODIUM/TAZOBACTAM 3.375 GM in DEXTROSE 5% IN WATER 50 ML IV ONE (09:55)
[2024-05-31] MEDS: PIPERACILLIN SODIUM/TAZOBACTAM 3.375 GM in DEXTROSE 5% IN WATER 100 ML IV SCH (14:10)
== END 2024-05-31 17:40 | disposition short-term general hospital (02) | DRG 872 ==
LOC: ED 16:41 → ICU 21:37 → MEDSUR 05-30 17:34
PROVIDERS: ADMIT Internal Medicine; ATTEND Student in an Organized Health Care Education/Training Program

== ENCOUNTER 2025-04-01 16:25 | Inpatient (IN) ==
[2025-04-01] MEDS: CEFEPIME 2 GM VIAL IV ONE (17:05)
[2025-04-01] MEDS: 0.9 % SODIUM CHLORIDE 1,000 ML IV ONE (17:05)
[2025-04-01 17:28] LABS: Basophils # (Auto) 0.01 K/mcL (0.00-0.30); Basophils % (Auto) 0.1 % (0.0-2.0); Eosinophils # (Auto) 0 K/mcL (0.00-0.70); Eosinophils % (Auto) 0 % (0.0-7.0); Hematocrit 49.0 % (40.1-51.0); Hemoglobin 15.7 g/dL (13.7-17.5); Lymphocytes # (Auto) 0.64 K/mcL (1.50-4.80); Lymphocytes % (Auto) 3.5 % (15.5-49.0); Mean Corpuscular HGB Conc 32.0 g/dL (31.0-36.0); Monocytes # (Auto) 1.40 K/mcL (0.10-0.90); Monocytes % (Auto) 7.6 % (1.0-12.0); Neutrophils % (Auto) 87.8 % (38.0-78.0); Platelet Count 236 K/mcL (140-440); RBC 5.56 M/mcL (4.63-6.08); WBC 18.5 K/mcL (4.5-11.0)
[2025-04-01 17:40] LABS: ALT/SGPT 45 U/L (<40); AST/SGOT 26 U/L (<40); Albumin 3.9 gm/dL (3.2-5.2); Albumin/Globulin Ratio 1.0 (1.0-2.3); Alkaline Phosphatase 105 U/L (39-117); Anion Gap 18.0 (8.0-16.0); Bilirubin,Total 1.4 mg/dL (0.1-1.0); Blood Urea Nitrogen 35 mg/dL (8-23); Calcium 9.6 mg/dL (8.6-10.4); Carbon Dioxide 19 mmol/L (22-30); Chloride 104 mmol/L (96-108); Globulin 4.0 gm/dL (2.2-3.7); Glucose 169 mg/dL (70-105); Potassium 4.3 mmol/L (3.3-5.1); Sodium 141 mmol/L (133-145)
[2025-04-01] MEDS: LACTATED RINGERS 1,000 ML IV ONE (17:47)
[2025-04-01 18:11] LABS: Bacteria,Urine Mod /hpf (0); Bilirubin,Urine NEGATIVE (Negative); Color,Urine YELLOW; Glucose,Urine (UA) NEGATIVE (Negative); Ketones,Urine NEGATIVE (Negative); Leukocyte Esterase,Urine LARGE /uL (Negative); PH,Urine 8.5 (5.0-9.0); Protein,Urine >=300 mg/dL (Negative); Specific Gravity,Urine 1.015 (1.000-1.035); Triple Phosphate Crystal,Urine Mod /hpf; Urobilinogen,Urine 0.2 mg/dL
[2025-04-01] MEDS: VANCOMYCIN 1,000 MG in 0.9 % SODIUM CHLORIDE 250 ML IV ONE (18:17)
[2025-04-01] MEDS: 0.9 % SODIUM CHLORIDE 500 ML IV ONE (19:19)
[2025-04-01] MEDS ORDERED: hydrALAZINE 20 MG/ML VIAL IV PRN (20:49)
[2025-04-01] MEDS: 0.9 % SODIUM CHLORIDE 1,000 ML IV SCH (23:29)
[2025-04-01] MEDS: PIPERACILLIN SODIUM/TAZOBACTAM 3.375 GM in DEXTROSE 5% IN WATER 100 ML IV SCH (23:30)
[2025-04-01] MEDS: 0.9 % SODIUM CHLORIDE 10 ML SYRINGE IV SCH (23:33)
[2025-04-01] MEDS: SENNOSIDES 1 TABLET PO SCH (23:34)
[2025-04-02] MEDS: metroNIDAZOLE 500 MG/100 ML BAG IV ONE (02:17)
[2025-04-02 06:39] LABS: ALT/SGPT 29 U/L (<40); AST/SGOT 18 U/L (<40); Albumin 3.0 gm/dL (3.2-5.2); Albumin/Globulin Ratio 1.0 (1.0-2.3); Alkaline Phosphatase 73 U/L (39-117); Anion Gap 9.0 (8.0-16.0); Basophils # (Auto) 0.02 K/mcL (0.00-0.30); Basophils % (Auto) 0.1 % (0.0-2.0); Bilirubin,Total 0.9 mg/dL (0.1-1.0); Blood Urea Nitrogen 27 mg/dL (8-23); Calcium 8.2 mg/dL (8.6-10.4); Carbon Dioxide 20 mmol/L (22-30); Chloride 111 mmol/L (96-108); Eosinophils # (Auto) 0.07 K/mcL (0.00-0.70); Eosinophils % (Auto) 0.5 % (0.0-7.0); Globulin 2.9 gm/dL (2.2-3.7); Glucose 99 mg/dL (70-105); Hematocrit 39.1 % (40.1-51.0); Hemoglobin 12.4 g/dL (13.7-17.5); Lymphocytes # (Auto) 0.89 K/mcL (1.50-4.80); Lymphocytes % (Auto) 6.1 % (15.5-49.0); Mean Corpuscular HGB Conc 31.7 g/dL (31.0-36.0); Monocytes # (Auto) 1.08 K/mcL (0.10-0.90); Monocytes % (Auto) 7.5 % (1.0-12.0); Neutrophils % (Auto) 84.7 % (38.0-78.0); Platelet Count 183 K/mcL (140-440); Potassium 3.4 mmol/L (3.3-5.1); RBC 4.40 M/mcL (4.63-6.08); Sodium 140 mmol/L (133-145); WBC 14.5 K/mcL (4.5-11.0)
[2025-04-02] MEDS: POTASSIUM CHLORIDE 20 MEQ TABLET PO SCH (12:14)
[2025-04-03 06:13] LABS: Basophils # (Auto) 0.02 K/mcL (0.00-0.30); Basophils % (Auto) 0.3 % (0.0-2.0); Eosinophils # (Auto) 0.19 K/mcL (0.00-0.70); Eosinophils % (Auto) 2.4 % (0.0-7.0); Hematocrit 36.2 % (40.1-51.0); Hemoglobin 11.5 g/dL (13.7-17.5); Lymphocytes # (Auto) 0.93 K/mcL (1.50-4.80); Lymphocytes % (Auto) 11.8 % (15.5-49.0); Mean Corpuscular HGB Conc 31.8 g/dL (31.0-36.0); Monocytes # (Auto) 0.79 K/mcL (0.10-0.90); Monocytes % (Auto) 10.1 % (1.0-12.0); Neutrophils % (Auto) 74.6 % (38.0-78.0); Platelet Count 165 K/mcL (140-440); RBC 4.06 M/mcL (4.63-6.08); WBC 7.9 K/mcL (4.5-11.0)
[2025-04-03 06:49] LABS: ALT/SGPT 24 U/L (<40); AST/SGOT 17 U/L (<40); Albumin 2.7 gm/dL (3.2-5.2); Albumin/Globulin Ratio 0.9 (1.0-2.3); Alkaline Phosphatase 65 U/L (39-117); Anion Gap 7.0 (8.0-16.0); Bilirubin,Total 0.5 mg/dL (0.1-1.0); Blood Urea Nitrogen 20 mg/dL (8-23); Calcium 7.9 mg/dL (8.6-10.4); Carbon Dioxide 20 mmol/L (22-30); Chloride 111 mmol/L (96-108); Globulin 2.9 gm/dL (2.2-3.7); Glucose 113 mg/dL (70-105); Potassium 3.8 mmol/L (3.3-5.1); Sodium 138 mmol/L (133-145)
[2025-04-03] MEDS: PIPERACILLIN SODIUM/TAZOBACTAM 3.375 GM in DEXTROSE 5% IN WATER 100 ML IV SCH (14:47)
[2025-04-04] MEDS: ONDANSETRON 4 MG/2 ML VIAL IV PRN (03:21)
[2025-04-04 07:53] LABS: ALT/SGPT 34 U/L (<40); AST/SGOT 30 U/L (<40); Albumin 3.1 gm/dL (3.2-5.2); Albumin/Globulin Ratio 1.0 (1.0-2.3); Alkaline Phosphatase 70 U/L (39-117); Anion Gap 8.0 (8.0-16.0); Bilirubin,Total 0.4 mg/dL (0.1-1.0); Blood Urea Nitrogen 15 mg/dL (8-23); Calcium 8.1 mg/dL (8.6-10.4); Carbon Dioxide 22 mmol/L (22-30); Chloride 109 mmol/L (96-108); Globulin 3.2 gm/dL (2.2-3.7); Glucose 123 mg/dL (70-105); Potassium 3.9 mmol/L (3.3-5.1); Sodium 139 mmol/L (133-145)
[2025-04-04 08:13] LABS: Basophils # (Auto) 0.02 K/mcL (0.00-0.30); Basophils % (Auto) 0.3 % (0.0-2.0); Eosinophils # (Auto) 0.29 K/mcL (0.00-0.70); Eosinophils % (Auto) 3.6 % (0.0-7.0); Hematocrit 42.9 % (40.1-51.0); Hemoglobin 13.1 g/dL (13.7-17.5); Lymphocytes # (Auto) 1.02 K/mcL (1.50-4.80); Lymphocytes % (Auto) 12.8 % (15.5-49.0); Mean Corpuscular HGB Conc 30.5 g/dL (31.0-36.0); Monocytes # (Auto) 0.88 K/mcL (0.10-0.90); Monocytes % (Auto) 11.1 % (1.0-12.0); Neutrophils % (Auto) 70.9 % (38.0-78.0); Platelet Count 203 K/mcL (140-440); RBC 4.67 M/mcL (4.63-6.08); WBC 8.0 K/mcL (4.5-11.0)
[2025-04-04] MEDS: LOSARTAN 25 MG TABLET PO SCH (13:06)
[2025-04-04] MEDS: FUROSEMIDE 40 MG/4 ML VIAL IV ONE (13:07)
[2025-04-04] MEDS: IPRATROPIUM/ALBUTEROL 3 ML AMPUL.NEB NEB SCH (15:20)
[2025-04-04] MEDS: ATORVASTATIN 40 MG TABLET PO SCH (20:53)
[2025-04-04] MEDS: FUROSEMIDE 40 MG/4 ML VIAL IV SCH (23:52)
[2025-04-05 06:54] LABS: Basophils # (Auto) 0.03 K/mcL (0.00-0.30); Basophils % (Auto) 0.4 % (0.0-2.0); Eosinophils # (Auto) 0.19 K/mcL (0.00-0.70); Eosinophils % (Auto) 2.2 % (0.0-7.0); Hematocrit 40.4 % (40.1-51.0); Hemoglobin 13.0 g/dL (13.7-17.5); Lymphocytes # (Auto) 0.94 K/mcL (1.50-4.80); Lymphocytes % (Auto) 11.0 % (15.5-49.0); Mean Corpuscular HGB Conc 32.2 g/dL (31.0-36.0); Monocytes # (Auto) 1.07 K/mcL (0.10-0.90); Monocytes % (Auto) 12.5 % (1.0-12.0); Neutrophils % (Auto) 72.6 % (38.0-78.0); Platelet Count 224 K/mcL (140-440); RBC 4.65 M/mcL (4.63-6.08); WBC 8.6 K/mcL (4.5-11.0)
[2025-04-05 07:30] LABS: ALT/SGPT 33 U/L (<40); AST/SGOT 28 U/L (<40); Albumin 3.2 gm/dL (3.2-5.2); Albumin/Globulin Ratio 1.0 (1.0-2.3); Alkaline Phosphatase 64 U/L (39-117); Anion Gap 8.0 (8.0-16.0); Bilirubin,Total 0.5 mg/dL (0.1-1.0); Blood Urea Nitrogen 12 mg/dL (8-23); Calcium 8.6 mg/dL (8.6-10.4); Carbon Dioxide 28 mmol/L (22-30); Chloride 105 mmol/L (96-108); Globulin 3.1 gm/dL (2.2-3.7); Glucose 124 mg/dL (70-105); Potassium 3.4 mmol/L (3.3-5.1); Sodium 141 mmol/L (133-145)
[2025-04-05] MEDS ORDERED: LOSARTAN 25 MG TABLET PO SCH (09:00)
[2025-04-05] MEDS: RIVAROXABAN 15 MG TABLET PO SCH (09:33)
[2025-04-05] MEDS: METOPROLOL SUCCINATE 50 MG TAB.XL.24H PO SCH (09:33)
[2025-04-05] MEDS: TIOTROPIUM BROMIDE 18 MCG INHALANT INH SCH (09:35)
[2025-04-05] MEDS: POTASSIUM CHLORIDE 20 MEQ TABLET PO ONE (10:28)
[2025-04-05] MEDS: 0.9 % SODIUM CHLORIDE 500 ML IV ONE (12:22)
[2025-04-05] MEDS: ALBUMIN HUMAN 25 GM/100 ML BAG IV ONE (12:22)
[2025-04-05] MEDS: FUROSEMIDE 40 MG/4 ML VIAL IV ONE ×3 (13:44→15:45)
[2025-04-05 18:53] LABS: Anion Gap 10.0 (8.0-16.0); Blood Urea Nitrogen 16 mg/dL (8-23); Calcium 9.1 mg/dL (8.6-10.4); Carbon Dioxide 32 mmol/L (22-30); Chloride 99 mmol/L (96-108); Glucose 108 mg/dL (70-105); Potassium 3.7 mmol/L (3.3-5.1); Sodium 141 mmol/L (133-145)
[2025-04-05] MEDS: CEFUROXIME 500 MG TABLET PO SCH (20:40)
[2025-04-05] MEDS: LACTATED RINGERS 1,000 ML IV SCH ×2 (20:41→23:31)
[2025-04-06 06:55] LABS: Basophils # (Auto) 0.02 K/mcL (0.00-0.30); Basophils % (Auto) 0.2 % (0.0-2.0); Eosinophils # (Auto) 0.29 K/mcL (0.00-0.70); Eosinophils % (Auto) 3.4 % (0.0-7.0); Hematocrit 42.2 % (40.1-51.0); Hemoglobin 13.6 g/dL (13.7-17.5); Lymphocytes # (Auto) 0.54 K/mcL (1.50-4.80); Lymphocytes % (Auto) 6.4 % (15.5-49.0); Mean Corpuscular HGB Conc 32.2 g/dL (31.0-36.0); Monocytes # (Auto) 1.07 K/mcL (0.10-0.90); Monocytes % (Auto) 12.6 % (1.0-12.0); Neutrophils % (Auto) 76.2 % (38.0-78.0); Platelet Count 233 K/mcL (140-440); RBC 4.81 M/mcL (4.63-6.08); WBC 8.5 K/mcL (4.5-11.0)
[2025-04-06 07:07] LABS: Phosphorous 2.4 mg/dL (2.5-4.5)
[2025-04-06 07:08] LABS: Anion Gap 12.0 (8.0-16.0); Blood Urea Nitrogen 18 mg/dL (8-23); Calcium 9.0 mg/dL (8.6-10.4); Carbon Dioxide 27 mmol/L (22-30); Chloride 100 mmol/L (96-108); Glucose 115 mg/dL (70-105); Potassium 4.1 mmol/L (3.3-5.1); Sodium 139 mmol/L (133-145)
[2025-04-06 10:32] LABS: C-Reactive Protein 4.90 mg/dL (0.03-0.80)
[2025-04-06] MEDS: IPRATROPIUM/ALBUTEROL 3 ML AMPUL.NEB NEB PRN (10:43)
[2025-04-06 12:44] LABS: Anion Gap 10.0 (8.0-16.0); Blood Urea Nitrogen 16 mg/dL (8-23); Calcium 9.2 mg/dL (8.6-10.4); Carbon Dioxide 27 mmol/L (22-30); Chloride 100 mmol/L (96-108); Glucose 119 mg/dL (70-105); Potassium 4.2 mmol/L (3.3-5.1); Sodium 137 mmol/L (133-145)
[2025-04-06] MEDS: ACETAMINOPHEN 325 MG TABLET PO PRN (19:24)
[2025-04-07 07:31] LABS: Anion Gap 10.0 (8.0-16.0); Blood Urea Nitrogen 23 mg/dL (8-23); Calcium 9.0 mg/dL (8.6-10.4); Carbon Dioxide 23 mmol/L (22-30); Chloride 101 mmol/L (96-108); Glucose 96 mg/dL (70-105); Potassium 4.2 mmol/L (3.3-5.1); Sodium 134 mmol/L (133-145)
[2025-04-07 08:44] LABS: Basophils # (Auto) 0.02 K/mcL (0.00-0.30); Basophils % (Auto) 0.2 % (0.0-2.0); Eosinophils # (Auto) 0.14 K/mcL (0.00-0.70); Eosinophils % (Auto) 1.6 % (0.0-7.0); Hematocrit 45.4 % (40.1-51.0); Hemoglobin 13.6 g/dL (13.7-17.5); Lymphocytes # (Auto) 0.43 K/mcL (1.50-4.80); Lymphocytes % (Auto) 5.0 % (15.5-49.0); Mean Corpuscular HGB Conc 30.0 g/dL (31.0-36.0); Monocytes # (Auto) 1.72 K/mcL (0.10-0.90); Monocytes % (Auto) 20.2 % (1.0-12.0); Neutrophils % (Auto) 71.0 % (38.0-78.0); Platelet Count 190 K/mcL (140-440); RBC 4.87 M/mcL (4.63-6.08); WBC 8.5 K/mcL (4.5-11.0)
[2025-04-07] MEDS: SODIUM PHOSPHATE 30 MMOL in DEXTROSE 5% IN WATER 500 ML IV ONE (09:35)
[2025-04-07 17:21] LABS: Basophils # (Auto) 0.03 K/mcL (0.00-0.30); Basophils % (Auto) 0.4 % (0.0-2.0); Eosinophils # (Auto) 0.08 K/mcL (0.00-0.70); Eosinophils % (Auto) 1.1 % (0.0-7.0); Hematocrit 41.3 % (40.1-51.0); Hemoglobin 13.0 g/dL (13.7-17.5); Lymphocytes # (Auto) 0.62 K/mcL (1.50-4.80); Lymphocytes % (Auto) 8.7 % (15.5-49.0); Mean Corpuscular HGB Conc 31.5 g/dL (31.0-36.0); Monocytes # (Auto) 1.54 K/mcL (0.10-0.90); Monocytes % (Auto) 21.7 % (1.0-12.0); Neutrophils % (Auto) 65.6 % (38.0-78.0); Platelet Count 197 K/mcL (140-440); RBC 4.60 M/mcL (4.63-6.08); WBC 7.1 K/mcL (4.5-11.0)
[2025-04-07 17:35] LABS: ALT/SGPT 29 U/L (<40); AST/SGOT 27 U/L (<40); Albumin 3.4 gm/dL (3.2-5.2); Albumin/Globulin Ratio 1.1 (1.0-2.3); Alkaline Phosphatase 57 U/L (39-117); Anion Gap 12.0 (8.0-16.0); Bilirubin,Direct 0.3 mg/dL (<0.3); Bilirubin,Total 0.5 mg/dL (0.1-1.0); Blood Urea Nitrogen 22 mg/dL (8-23); Calcium 8.8 mg/dL (8.6-10.4); Carbon Dioxide 26 mmol/L (22-30); Chloride 99 mmol/L (96-108); Globulin 3.2 gm/dL (2.2-3.7); Glucose 93 mg/dL (70-105); Phosphorous 4.7 mg/dL (2.5-4.5); Potassium 4.1 mmol/L (3.3-5.1); Sodium 137 mmol/L (133-145); Triglycerides 77 mg/dL (<150); Uric Acid 4.7 mg/dL (2.5-8.0)
[2025-04-07 17:36] LABS: C-Reactive Protein 4.25 mg/dL (0.03-0.80)
[2025-04-07] MEDS ORDERED: IPRATROPIUM/ALBUTEROL 3 ML AMPUL.NEB NEB SCH (17:45)
[2025-04-07] MEDS: IPRATROPIUM/ALBUTEROL 3 ML AMPUL.NEB NEB SCH (18:18)
[2025-04-07] MEDS: LACTATED RINGERS 1,000 ML IV SCH (21:08)
[2025-04-07] MEDS: BISACODYL 10 MG SUPP.RECT PR ONE (21:12)
[2025-04-07] MEDS: SENNOSIDES 1 TABLET PO SCH (21:12)
[2025-04-07] MEDS: POLYETHYLENE GLYCOL 3350 17 GM PACKET PO SCH (21:12)
[2025-04-07] MEDS: REMDESIVIR 200 MG in 0.9 % SODIUM CHLORIDE 250 ML IV ONE (23:48)
[2025-04-08 08:19] LABS: Basophils # (Auto) 0.03 K/mcL (0.00-0.30); Basophils % (Auto) 0.5 % (0.0-2.0); Eosinophils # (Auto) 0.04 K/mcL (0.00-0.70); Eosinophils % (Auto) 0.6 % (0.0-7.0); Hematocrit 41.7 % (40.1-51.0); Hemoglobin 13.1 g/dL (13.7-17.5); Lymphocytes # (Auto) 0.89 K/mcL (1.50-4.80); Lymphocytes % (Auto) 14.4 % (15.5-49.0); Mean Corpuscular HGB Conc 31.4 g/dL (31.0-36.0); Monocytes # (Auto) 1.30 K/mcL (0.10-0.90); Monocytes % (Auto) 21.0 % (1.0-12.0); Neutrophils % (Auto) 61.2 % (38.0-78.0); Platelet Count 184 K/mcL (140-440); RBC 4.68 M/mcL (4.63-6.08); WBC 6.2 K/mcL (4.5-11.0)
[2025-04-08 08:22] LABS: Anion Gap 8.0 (8.0-16.0); Blood Urea Nitrogen 20 mg/dL (8-23); Calcium 8.5 mg/dL (8.6-10.4); Carbon Dioxide 28 mmol/L (22-30); Chloride 102 mmol/L (96-108); Glucose 97 mg/dL (70-105); Potassium 4.0 mmol/L (3.3-5.1); Sodium 138 mmol/L (133-145)
[2025-04-08 08:23] LABS: Phosphorous 3.1 mg/dL (2.5-4.5)
[2025-04-08 13:49] VITALS: TEMP 97.9; O2SAT 98
[2025-04-08] MEDS ORDERED: REMDESIVIR 100 MG in 0.9 % SODIUM CHLORIDE 250 ML IV SCH (21:00)
== END 2025-04-08 14:20 | DRG 698 ==
LOC: ED 16:25 → MEDSUR 20:28
PROVIDERS: ADMIT Internal Medicine; ATTEND Student in an Organized Health Care Education/Training Program

== ENCOUNTER 2025-04-24 15:59 | Inpatient (IN) ==
[2025-04-24] MEDS ORDERED: IOPAMIDOL 100 ML BOTTLE IV ONE (16:00)
[2025-04-24 16:36] LABS: Basophils # (Auto) 0.02 K/mcL (0.00-0.30); Basophils % (Auto) 0.3 % (0.0-2.0); Eosinophils # (Auto) 0.18 K/mcL (0.00-0.70); Eosinophils % (Auto) 3.0 % (0.0-7.0); Hematocrit 40.0 % (40.1-51.0); Hemoglobin 12.5 g/dL (13.7-17.5); Lymphocytes # (Auto) 0.91 K/mcL (1.50-4.80); Lymphocytes % (Auto) 14.9 % (15.5-49.0); Mean Corpuscular HGB Conc 31.3 g/dL (31.0-36.0); Monocytes # (Auto) 0.76 K/mcL (0.10-0.90); Monocytes % (Auto) 12.5 % (1.0-12.0); Neutrophils % (Auto) 69.0 % (38.0-78.0); Platelet Count 177 K/mcL (140-440); RBC 4.44 M/mcL (4.63-6.08); WBC 6.1 K/mcL (4.5-11.0)
[2025-04-24 16:58] LABS: ALT/SGPT 16 U/L (<40); AST/SGOT 22 U/L (<40); Albumin 3.4 gm/dL (3.2-5.2); Albumin/Globulin Ratio 1.1 (1.0-2.3); Alkaline Phosphatase 64 U/L (39-117); Anion Gap 9.0 (8.0-16.0); Bilirubin,Total 0.6 mg/dL (0.1-1.0); Blood Urea Nitrogen 12 mg/dL (8-23); Calcium 8.5 mg/dL (8.6-10.4); Carbon Dioxide 24 mmol/L (22-30); Chloride 107 mmol/L (96-108); Globulin 3.0 gm/dL (2.2-3.7); Glucose 100 mg/dL (70-105); Potassium 4.4 mmol/L (3.3-5.1); Sodium 140 mmol/L (133-145)
[2025-04-24] MEDS: cefTRIAXone 2 GM in DEXTROSE 5% IN WATER 50 ML IV ONE (17:09)
[2025-04-24] MEDS: AZITHROMYCIN 500 MG in DEXTROSE 5% IN WATER 250 ML IV ONE (17:20)
[2025-04-24] MEDS ORDERED: ALBUTEROL SULFATE 2.5 MG/3 ML NEBULIZER NEB PRN (21:44)
[2025-04-24] MEDS ORDERED: ONDANSETRON 4 MG/2 ML VIAL IV PRN (21:44)
[2025-04-24] MEDS ORDERED: ACETAMINOPHEN 325 MG TABLET PO PRN (21:44)
[2025-04-24] MEDS: SENNOSIDES 1 TABLET PO SCH (22:49)
[2025-04-24] MEDS: 0.9 % SODIUM CHLORIDE 10 ML SYRINGE IV SCH (22:50)
[2025-04-25] MEDS: IPRATROPIUM/ALBUTEROL 3 ML AMPUL.NEB NEB SCH (00:04)
[2025-04-25] MEDS ORDERED: IPRATROPIUM/ALBUTEROL 3 ML AMPUL.NEB NEB PRN (08:07)
[2025-04-25] MEDS ORDERED: RIVAROXABAN 15 MG TABLET PO SCH (09:00)
[2025-04-25] MEDS: ATORVASTATIN 40 MG TABLET PO SCH (09:17)
[2025-04-25] MEDS: RIVAROXABAN 15 MG TABLET PO SCH (09:17)
[2025-04-25] MEDS: cefTRIAXone 2 GM in DEXTROSE 5% IN WATER 50 ML IV SCH (09:18)
[2025-04-25] MEDS: TIOTROPIUM BROMIDE 18 MCG INHALANT INH SCH (09:58)
[2025-04-25] MEDS: AZITHROMYCIN 500 MG in DEXTROSE 5% IN WATER 250 ML IV SCH (10:00)
[2025-04-26 07:05] LABS: ALT/SGPT 13 U/L (<40); AST/SGOT 19 U/L (<40); Albumin 3.3 gm/dL (3.2-5.2); Albumin/Globulin Ratio 1.1 (1.0-2.3); Alkaline Phosphatase 64 U/L (39-117); Anion Gap 8.0 (8.0-16.0); Bilirubin,Direct 0.3 mg/dL (<0.3); Bilirubin,Total 0.7 mg/dL (0.1-1.0); Blood Urea Nitrogen 15 mg/dL (8-23); Calcium 8.7 mg/dL (8.6-10.4); Carbon Dioxide 24 mmol/L (22-30); Chloride 109 mmol/L (96-108); Globulin 2.9 gm/dL (2.2-3.7); Glucose 92 mg/dL (70-105); Phosphorous 2.6 mg/dL (2.5-4.5); Potassium 4.3 mmol/L (3.3-5.1); Sodium 141 mmol/L (133-145); Triglycerides 51 mg/dL (<150); Uric Acid 4.8 mg/dL (2.5-8.0)
[2025-04-26 08:46] LABS: Basophils # (Auto) 0.01 K/mcL (0.00-0.30); Basophils % (Auto) 0.2 % (0.0-2.0); Eosinophils # (Auto) 0.29 K/mcL (0.00-0.70); Eosinophils % (Auto) 5.1 % (0.0-7.0); Hematocrit 41.4 % (40.1-51.0); Hemoglobin 12.8 g/dL (13.7-17.5); Lymphocytes # (Auto) 0.93 K/mcL (1.50-4.80); Lymphocytes % (Auto) 16.5 % (15.5-49.0); Mean Corpuscular HGB Conc 30.9 g/dL (31.0-36.0); Monocytes # (Auto) 0.89 K/mcL (0.10-0.90); Monocytes % (Auto) 15.8 % (1.0-12.0); Neutrophils % (Auto) 62.0 % (38.0-78.0); Platelet Count 136 K/mcL (140-440); RBC 4.54 M/mcL (4.63-6.08); WBC 5.6 K/mcL (4.5-11.0)
[2025-04-26] MEDS ORDERED: ALBUTEROL SULFATE 2.5 MG/3 ML NEBULIZER NEB PRN (10:29)
[2025-04-26] MEDS ORDERED: FUROSEMIDE 20 MG TABLET PO PRN (10:43)
[2025-04-26] MEDS: METOPROLOL SUCCINATE 50 MG TAB.XL.24H PO SCH (11:18)
[2025-04-26] MEDS: LOSARTAN 25 MG TABLET PO SCH (11:18)
[2025-04-26] MEDS: IPRATROPIUM/ALBUTEROL 3 ML AMPUL.NEB NEB SCH (11:35)
[2025-04-26] MEDS: RIVAROXABAN 15 MG TABLET PO SCH (17:20)
[2025-04-26] MEDS: AMOXICILLIN/POTASSIUM CLAV 875 MG TABLET PO SCH (17:20)
[2025-04-27 07:06] LABS: ALT/SGPT 13 U/L (<40); AST/SGOT 17 U/L (<40); Albumin 3.3 gm/dL (3.2-5.2); Albumin/Globulin Ratio 1.2 (1.0-2.3); Alkaline Phosphatase 60 U/L (39-117); Anion Gap 7.0 (8.0-16.0); Bilirubin,Direct 0.3 mg/dL (<0.3); Bilirubin,Total 0.6 mg/dL (0.1-1.0); Blood Urea Nitrogen 16 mg/dL (8-23); Calcium 8.8 mg/dL (8.6-10.4); Carbon Dioxide 23 mmol/L (22-30); Chloride 107 mmol/L (96-108); Globulin 2.8 gm/dL (2.2-3.7); Glucose 131 mg/dL (70-105); Phosphorous 2.0 mg/dL (2.5-4.5); Potassium 4.4 mmol/L (3.3-5.1); Sodium 137 mmol/L (133-145); Triglycerides 44 mg/dL (<150); Uric Acid 4.6 mg/dL (2.5-8.0)
[2025-04-27 07:48] VITALS: TEMP 97.7
[2025-04-27 11:31] VITALS: O2SAT 96
== END 2025-04-27 13:28 | DRG 70 ==
LOC: ED 15:59 → MEDSUR 21:27
PROVIDERS: ADMIT Internal Medicine; ATTEND Internal Medicine